=== PATIENT | female | born 1960 ===

== ENCOUNTER 2016-06-29 10:22 | Day surgery (SDC) | payer OTHER ==
[2016-06-29 11:56] VITALS: BMI 28.8
[2016-06-29] MEDS ORDERED: Propofol 10 mg/ml Inj (20 ML) ONE (13:38)
[2016-06-29 14:18] VITALS: O2SAT 100
[2016-06-29 15:04] VITALS: PULSE 51; RESP 17
[2016-06-29 15:08] VITALS: BP 126/70; TEMP 97.9
== END 2016-06-29 15:00 | disposition home or self-care (01) ==
LOC: C.ENDO 10:22
PROVIDERS: ATTEND Internal Medicine Gastroenterology
DX: K29.50 Unspecified chronic gastritis without bleeding (principal); R10.13 Epigastric pain; Z80.0 Family history of malignant neoplasm of digestive organs
CPT/HCPCS: 43239; 88305; 88313; 88342; J2704

== ENCOUNTER 2016-09-28 18:35 | Emergency (ER) | payer SELFPAY ==
[2016-09-28 18:35] VITALS: BMI 28.8
[2016-09-28 19:40] VITALS: RESP 16
--- NOTE | 2016-09-28 20:56 | C.PDOC ---
History Of Present Illness 56 year old female who presents to the ER with a complaint of sharp, stabbing bilateral neck pain, more so on the right side, that worsens with movement for the past 3 days. Patient reports she has been having 800mg of ibuprofen with minimal relief; denies fever or vomiting. Time Seen by Provider: 09/28/16 20:17 Chief Complaint (Nursing): Headache History Per: Patient History/Exam Limitations: no limitations Onset/Duration Of Symptoms: Days Current Symptoms Are (Timing): Still Present Quality: Sharp, Other (Stabbing) Preceeding Symptoms: None Associated Symptoms: denies: Photophobia, Blurred Vision, Nausea, Vomiting, Extremity Weakness Recent travel outside of the [place]: No Past Medical History Reviewed: Historical Data, Nursing Documentation, Vital Signs Vital Signs: Last Vital Signs Temp 97.8 F 09/28/16 22:17 Pulse 72 09/28/16 22:17 Resp 16 09/28/16 22:17 BP 115/77 09/28/16 22:17 Pulse Ox 96 09/28/16 22:17 - Medical History PMH: Gastritis, Hypothyroidism - [facility] Procedures BREAST DX PROCEDURE NEC (07/06/13) COLONOSCOPY (10/12/13) PERCUTAN NEEDLE BIOPSY OF BREAST (07/06/13) X-RAY NEC AND NOS (07/06/13) Family History: States: Unknown Family Hx - Social History Hx Alcohol Use: Yes Hx Substance Use: No Review Of Systems Constitutional: Negative for: Fever, Chills Gastrointestinal: Negative for: Nausea, Vomiting Musculoskeletal: Positive for: Neck Pain Neurological: Negative for: Weakness, Numbness, Headache, Dizziness Physical Exam - Physical Exam Additional Physical Exam Comments: Constitutional: No acute distress. Head: Normocephalic. Atraumatic. Eyes: PERRL. EOMI. ENT: No mastoid tenderness. No ecchymosis behind the ears. Neck: Right sided paraspinal tenderness. No midline tenderness. Negative brudzinski's sign and kernig's sign Cardiovascular: Regular rate. Radial pulses 2+ bilaterally. Chest: No tenderness. Respiratory: Clear to auscultation bilaterally. GI: Soft. Nontender. Nondistended. Back: No CVA tenderness. Musculoskeletal: No tenderness or swelling of extremities. Skin: No rash. Neurologic: Alert, no focal deficit. ED Course And Treatment O2 Sat by Pulse Oximetry: 98 (Room air) Pulse Ox Interpretation: Normal Disposition - Disposition Referrals: [facility] [Outside] Disposition: HOME/ ROUTINE Disposition Time: 22:10 Condition: STABLE Prescriptions: Methocarbamol [Robaxin-750] 1 tab PO Q8H #12 tablet Instructions: Cervical Radiculopathy (ED) Forms: [facility] (Burkinan) - Clinical Impression Clinical Impression: Neck pain - Scribe Statement The provider has reviewed the documentation as recorded by the Scribe Yfn Manzo All medical record entries made by the Scribe were at my direction and personally dictated by me. I have reviewed the chart and agree that the record accurately reflects my personal performance of the history, physical exam, medical decision making, and the department course for this patient. I have also personally directed, reviewed, and agree with the discharge instructions and disposition.
[2016-09-28 22:18] VITALS: BP 115/77; PULSE 72; TEMP 97.8
[2016-09-28 23:27] VITALS: O2SAT 98
== END 2016-09-28 22:18 | disposition home or self-care (01) ==
LOC: C.ER 18:35
DX: M54.2 Cervicalgia (principal)
CPT/HCPCS: 96372; 99284; J1885

== ENCOUNTER 2017-07-12 17:57 | Emergency (ER) | payer OTHER ==
[2017-07-12 17:57] VITALS: BMI 28.5
[2017-07-12 18:02] VITALS: BP 139/79; PULSE 93; RESP 18; TEMP 98.2; O2SAT 98
[2017-07-12] MEDS ORDERED: Lidocaine 5% Patch TD STA (18:18)
--- NOTE | 2017-07-12 18:19 | C.PDOC ---
History Of Present Illness 56 year old female presents s/p trip and fall 5 days ago, complaining of pain to the tailbone area. Patient states the pain worsens with movement. Denies weakness or numbness. - HPI Time Seen by Provider: 07/12/17 18:10 Chief Complaint (Nursing): Back Pain History Per: Patient History/Exam Limitations: no limitations Onset/Duration Of Symptoms: Hrs Injury Occurred (Timing): Days Ago: (5) Location Of Injury: Posterior: Back Recent travel outside of the [place]: No - Fall Fall:Prior To Injury: Slipped Past Medical History Reviewed: Historical Data, Nursing Documentation, Vital Signs Vital Signs: Last Vital Signs Temp 98.2 F 07/12/17 17:59 Pulse 93 H 07/12/17 17:59 Resp 18 07/12/17 17:59 BP 139/79 07/12/17 17:59 Pulse Ox 98 07/12/17 18:34 - Medical History PMH: Gastritis, Hypothyroidism - [facility] Procedures BREAST DX PROCEDURE NEC (07/06/13) COLONOSCOPY (10/12/13) PERCUTAN NEEDLE BIOPSY OF BREAST (07/06/13) X-RAY NEC AND NOS (07/06/13) Family History: States: Unknown Family Hx - Social History Hx Alcohol Use: Yes Hx Substance Use: No - Immunization History Hx Tetanus Toxoid Vaccination: Yes Hx Influenza Vaccination: No Hx Pneumococcal Vaccination: No Review Of Systems Musculoskeletal: Positive for: Back Pain Neurological: Negative for: Weakness, Numbness Physical Exam - Physical Exam Appears: Non-toxic Skin: Normal Color, Warm, Dry Head: Atraumatic, Normacephalic Eye(s): bilateral: Normal Inspection Back: Other (Generalized tenderness to sacral area. Limited ROM secondary to pain.) Extremity: Normal ROM (x4) Neurological/Psych: Oriented x3, Normal Speech, Normal Motor, Normal Sensation Gait: Steady ED Course And Treatment O2 Sat by Pulse Oximetry: 98 (Room air) Pulse Ox Interpretation: Normal - Other Rad COCCYX X-Ray: Interpreted by Me (NEG) Medical Decision Making Medical Decision Making: Plan: * Sacrum/coccyx x-ray * Tylenol * Flexeril * Motrin * Lidoderm Disposition Counseled Patient/Family Regarding: Studies Performed, Diagnosis, Need For Followup, Rx Given - Disposition Referrals: [facility] [Outside] [facility] [Outside] Disposition: HOME/ ROUTINE Disposition Time: 18:46 Condition: IMPROVED Prescriptions: Acetaminophen [Tylenol Extra Strength] 2 tab PO Q6 #30 tablet Cyclobenzaprine [Flexeril] 10 mg PO TID #15 tab Lidocaine 5% [Lidoderm] 1 ea TD PRN PRN #10 patch PRN Reason: Pain, Moderate (4-7) Naproxen 500 mg PO BID #30 tab Instructions: Coccyx Injury (DC) Forms: [facility] (Indonesian), Work Excuse Print Language: JAPANESE - Clinical Impression Clinical Impression: Coccygeal injury - Scribe Statement The provider has reviewed the documentation as recorded by the Scribe Yfn Manzo All medical record entries made by the Scribe were at my direction and personally dictated by me. I have reviewed the chart and agree that the record accurately reflects my personal performance of the history, physical exam, medical decision making, and the department course for this patient. I have also personally directed, reviewed, and agree with the discharge instructions and disposition.
[2017-07-12] MEDS ORDERED: Lidocaine 5% Patch TD ONE (18:28)
--- NOTE | 2017-07-13 08:44 | RAD ---
PROCEDURE: Radiographs of the Sacrum and Coccyx HISTORY: trauma COMPARISON: None available. TECHNIQUE: Frontal and lateral views of the sacrum and coccyx FINDINGS: BONES: Sacrum and coccyx unremarkable. No fracture or focal lesion. SACROILIAC JOINTS: Unremarkable. OTHER FINDINGS: The coccygeal appearance is compatible with normal developmental variation IMPRESSION: Unremarkable radiographs of the sacrum and coccyx.
== END 2017-07-12 18:59 | disposition home or self-care (01) ==
LOC: C.ER 17:57
DX: S39.92XA Unspecified injury of lower back, initial encounter (principal); W01.0XXA Fall on same level from slipping, tripping and stumbling without subsequent striking against object, initial encounter

== ENCOUNTER 2017-12-28 11:20 | Emergency (ER) | payer OTHER ==
[2017-12-28 11:20] VITALS: BMI 28.5
[2017-12-28 11:36] VITALS: BP 117/77; PULSE 73; RESP 18; TEMP 97.8; O2SAT 99
--- NOTE | 2017-12-28 12:39 | C.PDOC ---
History Of Present Illness 57 y/o female presents to the ER complaining of sore throat and cough for 4 days, with associated chest discomfort for 2 days. Patient states pain worsens with deep breaths or cough. Additionally reports headache that radiates to neck and back. She has sick family contacts. Denies having fever, chills, nausea, and vomiting. Time Seen by Provider: 12/28/17 12:21 Chief Complaint (Nursing): Chest Pain History Per: Patient History/Exam Limitations: no limitations Onset/Duration Of Symptoms: Days Current Symptoms Are (Timing): Still Present Severity: Moderate Past Medical History Reviewed: Historical Data, Nursing Documentation, Vital Signs Vital Signs: Last Vital Signs Temp 97.8 F 12/28/17 11:32 Pulse 73 12/28/17 11:32 Resp 18 12/28/17 11:32 BP 117/77 12/28/17 11:32 Pulse Ox 99 12/28/17 11:32 - Medical History PMH: Anxiety, Gastritis, Hypothyroidism Other Surgeries: Hx of surgeries - [facility] Procedures BREAST DX PROCEDURE NEC (07/06/13) COLONOSCOPY (10/12/13) PERCUTAN NEEDLE BIOPSY OF BREAST (07/06/13) X-RAY NEC AND NOS (07/06/13) Family History: States: No Known Family Hx - Social History Hx Alcohol Use: Yes Hx Substance Use: No - Immunization History Hx Tetanus Toxoid Vaccination: No Hx Influenza Vaccination: No Hx Pneumococcal Vaccination: No Review Of Systems Except As Marked, All Systems Reviewed And Found Negative. Constitutional: Negative for: Fever, Chills ENT: Positive for: Throat Pain Cardiovascular: Negative for: Chest Pain Respiratory: Positive for: Cough. Negative for: Shortness of Breath Gastrointestinal: Negative for: Nausea, Vomiting Physical Exam - Physical Exam Appears: Non-toxic, No Acute Distress Skin: Normal Color, Warm, Dry Head: Atraumatic, Normacephalic Eye(s): bilateral: Normal Inspection Ear(s): Bilateral: Normal Nose: Normal Oral Mucosa: Moist Throat: Normal, No Erythema, No Exudate Neck: Supple Chest: Symmetrical Cardiovascular: Rhythm Regular, No Rhythm Irregular, No Friction Rub, No Murmur Respiratory: Normal Breath Sounds, No Rales, No Rhonchi, No Wheezing Neurological/Psych: Oriented x3, Normal Speech ED Course And Treatment O2 Sat by Pulse Oximetry: 99 (RA) Pulse Ox Interpretation: Normal - Radiology CXR: Interpreted by Me, Viewed By Me CXR Interpretation: Yes: No Acute Disease Medical Decision Making Medical Decision Making: Impression: cough and chest discomfort Plan: * CXR Progress: CXR viewed by me and shows no acute disease. On re-eval the patient is afebrile and in no distress. She has clear lungs bilaterally with good air entry. Recommend analgesics and cough medicine. Patient stable for discharge and to follow up with PMD Disposition Counseled Patient/Family Regarding: Diagnosis, Need For Followup, Rx Given - Disposition Referrals: [facility] [Outside] [facility] [Outside] Disposition: HOME/ ROUTINE Disposition Time: 12:36 Condition: GOOD Additional Instructions: Tapia radiografa de trax era normal, sin neumona. [place] la medicina para la tos segn sea necesario. Regrese al departamento de emergencias en cualquier momento si los sntomas persisten o empeoran. Prescriptions: Benzocaine/Menthol [Cepacol Sore Throat] 1 ilana MM Q2 #30 ilana Loratadine 10 mg PO DAILY #20 tablet Promethazine DM [Phenergan DM Syrup] 10 ml PO Q8 PRN #300 ml PRN Reason: Cough Instructions: Viral Upper Respiratory Infection, Adult (DC) Print Language: DANISH - POA Present On Arrival: None - Clinical Impression Clinical Impression: Upper respiratory infection, Costochondral chest pain - PA / STAGE TECHNICIAN / Resident Statement MD/DO has reviewed & agrees with the documentation as recorded. - Scribe Statement The provider has reviewed the documentation as recorded by the Irmaibshivam Aguiar Provider Attestation All medical record entries made by the Scribe were at my direction and personally dictated by me. I have reviewed the chart and agree that the record accurately reflects my personal performance of the history, physical exam, medical decision making, and the department course for this patient. I have also personally directed, reviewed, and agree with the discharge instructions and disposition.
--- NOTE | 2017-12-28 13:14 | RAD ---
Date of service: 12/28/2017 HISTORY: cough COMPARISON: 01/01/2017 TECHNIQUE: Chest PA and lateral FINDINGS: LUNGS: No active pulmonary disease. PLEURA: No significant pleural effusion identified. No pneumothorax apparent. CARDIOVASCULAR: No aortic atherosclerotic calcification present. Normal cardiac size. No pulmonary vascular congestion. OSSEOUS STRUCTURES: No significant abnormalities. VISUALIZED UPPER ABDOMEN: Normal. OTHER FINDINGS: None. IMPRESSION: No active disease. No interval pathology noted
--- NOTE | 2017-12-30 07:36 | CARD ---
APPROVED REPORT Date of service: 12/28/2017 EKG Measurement Heart [id number] NM [id number] <Conclusion> Normal sinus rhythm Possible Left atrial enlargement Borderline ECG
== END 2017-12-28 12:58 | disposition home or self-care (01) ==
LOC: C.ER 11:20
DX: J06.9 Acute upper respiratory infection, unspecified (principal); R07.89 Other chest pain

== ENCOUNTER 2018-01-24 18:46 | Emergency (ER) | payer OTHER ==
[2018-01-24 18:46] VITALS: BMI 28.5
[2018-01-24 18:52] VITALS: BP 124/84; PULSE 76; RESP 16; TEMP 97.5; O2SAT 100
[2018-01-24] MEDS ORDERED: Amoxicillin-Clav 875-125 mg Tab PO STA (19:50)
[2018-01-24] MEDS ORDERED: Amoxicillin-Clav 875-125 mg Tab PO ONE (20:03)
--- NOTE | 2018-01-24 20:08 | C.PDOC ---
History Of Present Illness 57 year old female presents to the ED for evaluation of right ear pain which began two days ago. Patient reports she had cough, runny nose, and congestion over the past week and then developed ear pain afterwards. Patient denies fever, nausea, vomiting, diarrhea. Time Seen by Provider: 01/24/18 19:24 Chief Complaint (Nursing): ENT Problem History Per: Patient History/Exam Limitations: None Onset/Duration Of Symptoms: Days (2) Current Symptoms Are (Timing): Still Present Past Medical History Reviewed: Historical Data, Nursing Documentation, Vital Signs Vital Signs: Last Vital Signs Temp 97.5 F L 01/24/18 18:49 Pulse 76 01/24/18 18:49 Resp 16 01/24/18 18:49 BP 124/84 01/24/18 18:49 Pulse Ox 100 01/24/18 18:49 - Medical History PMH: Anxiety, Gastritis, Hypothyroidism Denies: Colonic Polyps, Fractures, Chronic Kidney Disease, Sleep Apnea, TIA Surgical History: No Surg Hx - [facility] Procedures BREAST DX PROCEDURE NEC (07/06/13) COLONOSCOPY (10/12/13) PERCUTAN NEEDLE BIOPSY OF BREAST (07/06/13) X-RAY NEC AND NOS (07/06/13) Family History: States: Unknown Family Hx - Social History Hx Alcohol Use: Yes Hx Substance Use: No - Immunization History Hx Tetanus Toxoid Vaccination: No Hx Influenza Vaccination: No Hx Pneumococcal Vaccination: No Review Of Systems Constitutional: Negative for: Fever, Chills ENT: Positive for: Ear Pain (right ), Nose Discharge, Nose Congestion Gastrointestinal: Negative for: Nausea, Vomiting, Diarrhea Physical Exam - Physical Exam Appears: Non-toxic, No Acute Distress Skin: Normal Color, Warm, Dry Head: Atraumatic, Normacephalic, No Tenderness (mastoid ) Eye(s): bilateral: Normal Inspection Ear(s): Left: Normal, Right: TM Erythema, Bilateral: Other (No pain with pulling of the pinna or tragus) Nose: Normal, No Flaring Oral Mucosa: Moist Throat: Normal, No Erythema, No Exudate Neck: Normal ROM, Supple Lymphatic: Normal Exam Chest: Symmetrical, No Deformity Cardiovascular: Rhythm Regular, No Friction Rub, No Murmur Respiratory: Normal Breath Sounds, No Rales, No Rhonchi, No Wheezing Extremity: Normal ROM, Capillary Refill (less than 2 seconds ) Neurological/Psych: Oriented x3, Normal Speech, Normal Cognition Gait: Steady ED Course And Treatment O2 Sat by Pulse Oximetry: 100 (on RA ) Pulse Ox Interpretation: Normal Medical Decision Making Medical Decision Making: Augmentin PO and Motrin PO administered. Disposition - Disposition Referrals: Jeffy Paulino MD [Staff Provider] - Disposition: HOME/ ROUTINE Disposition Time: 20:04 Condition: STABLE Additional Instructions: Follow up with the ENT within 1-2 days without fail. Return if worsened. Prescriptions: Amoxicillin/Clavulanate [Augmentin 875 MG-125 MG] 1 tab PO BID #14 tab Ibuprofen [Motrin] 1 tab PO TID PRN #30 tab PRN Reason: Pain Instructions: Ear Infections (Otitis Media) (DC) Forms: [employer] (Indonesian) Print Language: MOZAMBICAN - Clinical Impression Clinical Impression: Otitis media - PA / RN ACUTE CARE / Resident Statement MD/DO has reviewed & agrees with the documentation as recorded. - Scribe Statement The provider has reviewed the documentation as recorded by the Scribe (Pricilla Greco) All medical record entries made by the Scribe were at my direction and personally dictated by me. I have reviewed the chart and agree that the record accurately reflects my personal performance of the history, physical exam, medical decision making, and the department course for this patient. I have also personally directed, reviewed, and agree with the discharge instructions and disposition.
== END 2018-01-24 20:22 | disposition home or self-care (01) ==
LOC: C.ER 18:46
DX: H66.91 Otitis media, unspecified, right ear (principal)

== ENCOUNTER 2018-02-12 11:31 | Outpatient (CLI) | payer OTHER | END 2018-02-12 11:32 | disposition home or self-care (01) | LOC: C.LAB 11:31 | DX: R76.0 Raised antibody titer (principal); R53.83 Other fatigue ==

== ENCOUNTER 2018-03-16 16:06 | Emergency (ER) | payer OTHER ==
[2018-03-16 16:06] VITALS: BMI 28.5
[2018-03-16] MEDS ORDERED: Magnesium Sulfate 1 gm in D5W 1 GM/100 ML BAG IVPB STA (16:41)
[2018-03-16] MEDS ORDERED: Sodium Chloride 0.9% 1,000 ML IV STA (16:41)
--- NOTE | 2018-03-16 16:41 | C.PDOC ---
History Of Present Illness RECUR MIGRAINE SINCE LAST NIGHT. NO IMPROVE W TYLENOL LAST DOSE @ 1000. +LIGHT SENSITIVE. NO FEVER, TRAUMA, NV. PS NORMALLY GETS THIBODEAUX MONTHLY, CURRENTLY THIBODEAUX SIM TO PRIOR EXAM MILD DIST HEENT +MILD PHOTOPHOBIA NECK SUPPLE NO MENINGISMUS NEURO INTACT REMAINDER NEG Time Seen by Provider: 03/16/18 16:28 Chief Complaint (Nursing): Headache History Per: Patient History/Exam Limitations: no limitations Onset/Duration Of Symptoms: Days Current Symptoms Are (Timing): Still Present Severity: Moderate Past Medical History Reviewed: Historical Data, Nursing Documentation, Vital Signs Vital Signs: Last Vital Signs Temp 97.9 F 03/16/18 16:16 Pulse 761 H 03/16/18 16:16 Resp 8 L 03/16/18 16:16 BP 128/80 03/16/18 16:16 Pulse Ox 97 03/16/18 16:16 - Medical History PMH: Anxiety, Gastritis, Hypothyroidism Denies: Colonic Polyps, Fractures, Chronic Kidney Disease, Sleep Apnea, TIA Other Surgeries: Hx of surgeries - [facility] Procedures BREAST DX PROCEDURE NEC (07/06/13) COLONOSCOPY (10/12/13) PERCUTAN NEEDLE BIOPSY OF BREAST (07/06/13) X-RAY NEC AND NOS (07/06/13) Family History: States: No Known Family Hx - Social History Hx Alcohol Use: Yes Hx Substance Use: No - Immunization History Hx Tetanus Toxoid Vaccination: No Hx Influenza Vaccination: No Hx Pneumococcal Vaccination: No Review Of Systems Except As Marked, All Systems Reviewed And Found Negative. Constitutional: Negative for: Fever, Chills Eyes: Positive for: Other (light sensitivity) Gastrointestinal: Negative for: Nausea, Vomiting Neurological: Positive for: Headache. Negative for: Dizziness Physical Exam - Physical Exam Appears: Other (mild distress) Skin: Normal Color, Warm, Dry Head: Atraumatic, Normacephalic Eye(s): bilateral: PERRL, EOMI, Other (mild photophobia) Neck: Supple, Other (no meningismus) Cardiovascular: Rhythm Regular Respiratory: Normal Breath Sounds, No Rales, No Rhonchi, No Wheezing Neurological/Psych: Oriented x3, Normal Speech, Normal Motor, Normal Sensation ED Course And Treatment O2 Sat by Pulse Oximetry: 97 (RA) Pulse Ox Interpretation: Normal Medical Decision Making Medical Decision Making: Plan: --Magnesium Sulfate IV --Reglan IV --Toradol IV --IV Fluids Disposition Counseled Patient/Family Regarding: Diagnosis, Need For Followup, Rx Given - Disposition Referrals: [facility] [Outside] [facility] [Outside] Disposition: HOME/ ROUTINE Disposition Time: 18:10 Condition: IMPROVED Prescriptions: Ibuprofen [Motrin] 600 mg PO Q6 #30 tab Metoclopramide [Reglan] 1 tab PO TID PRN #25 tab PRN Reason: Nausea/Vomiting Instructions: Migraine Headache (DC) Forms: [employer] (Estonian), Work Excuse - Clinical Impression Clinical Impression: Migraine - Scribe Statement The provider has reviewed the documentation as recorded by the Irmaibe Anna Aguiar Provider Attestation: All medical record entries made by the Irmaibe were at my direction and personally dictated by me. I have reviewed the chart and agree that the record accurately reflects my personal performance of the history, physical exam, medical decision making, and the department course for this patient. I have also personally directed, reviewed, and agree with the discharge instructions and disposition.
[2018-03-16] MEDS ORDERED: Magnesium Sulfate 1 gm in D5W 1 GM/100 ML BAG IVPB ONE (16:51)
[2018-03-16] MEDS ORDERED: Sodium Chloride 0.9% 1,000 ML ONE (16:51)
[2018-03-16 18:06] VITALS: O2SAT 97
[2018-03-16 18:32] VITALS: BP 111/74; PULSE 75; RESP 18; TEMP 98.1
== END 2018-03-16 18:46 | disposition home or self-care (01) ==
LOC: C.ER 16:06
DX: G43.909 Migraine, unspecified, not intractable, without status migrainosus (principal); E03.9 Hypothyroidism, unspecified; F41.9 Anxiety disorder, unspecified
CPT/HCPCS: 96365; 96375; 99285; J1885; J2765; J3475; J7030

== ENCOUNTER 2018-06-09 11:21 | Outpatient (CLI) | payer OTHER | END 2018-06-09 11:22 | disposition home or self-care (01) | LOC: C.USIC 11:21 | DX: E04.1 Nontoxic single thyroid nodule (principal) ==

== ENCOUNTER 2018-06-27 12:18 | Outpatient (CLI) | payer SELFPAY | END 2018-06-27 12:19 | disposition home or self-care (01) | LOC: C.LAB 12:18 | DX: E03.9 Hypothyroidism, unspecified (principal) ==

== ENCOUNTER 2018-06-27 12:21 | Outpatient (CLI) | payer SELFPAY | END 2018-06-27 12:22 | disposition home or self-care (01) | LOC: C.LAB 12:21 | DX: E11.9 Type 2 diabetes mellitus without complications (principal); E55.9 Vitamin D deficiency, unspecified; E13.9 Other specified diabetes mellitus without complications ==